=== PATIENT | female | born 2000 | race Caucasian/White ===

== ENCOUNTER 2023-08-10 14:13 | Emergency (ER) | payer OTHER ==
[~2023-08-10] VITALS: Ht 157.5 cm; Wt 85.7 kg
[~2023-08-10 14:13] MED LIST: PRETAB PO
[2023-08-10 14:30] VITALS: BP 140/85; PULSE 125; RESP 18; TEMP 97.8; O2SAT 98
[2023-08-10 14:55] VITALS: BP 120/78; PULSE 115; RESP 18; TEMP 98; O2SAT 99
== END 2023-08-10 14:55 ==
LOC: MED 14:13
DX: R03.0 Elevated blood-pressure reading, without diagnosis of hypertension (principal); Z79.899 Other long term (current) drug therapy
CPT/HCPCS: 99283